=== PATIENT | female | born 1980 | race Caucasian/White ===

== ENCOUNTER 2017-08-11 18:25 | Emergency (ER) | payer OTHER ==
[~2017-08-11] VITALS: Ht 170.2 cm; Wt 77.1 kg
--- NOTE | 2017-08-11 18:40 | ED.ADGEN ---
Past History Past Medical History: Other Adult General Chief Complaint Chief Complaint " I got this bad tooth here on Rt lower(31/32 area).. but now my jaw is swollen and it seems to be affecting my hearing.. I am up here visiting from [place]. " [facility] HPI Patient is a 37 year old female who presents with complaints of congestion and cough. In right ear pain and mandible tenderness . The patient has multiple areas of dental decay and pain is localized in teeth 31 and 32 area. Appears to have need of extraction or repair of 32. Has some adenopathy right mandible angle. There is some retraction of TM on that side. Air-conduction is less than bone conduction on the right side. Bone conduction is equal in both ears with 128 fork. Patient has no trismus. No history immunosuppression. Patient rates her pain 9 out of 10. No obvious pointing abscess. Review of Systems Review of Systems Constitutional: Denies fever or chills [] Eyes: Denies change in visual acuity, redness, or eye pain [] HENT: History of nasal congestion or sore throat []history of right dental pain. History of right ear pain Respiratory: Denies cough or shortness of breath [] Cardiovascular: No additional information not addressed in HPI [] GI: Denies abdominal pain, nausea, vomiting, bloody stools or diarrhea [] : Denies dysuria or hematuria [] Musculoskeletal: Denies back pain or joint pain [] Integument: Denies rash or skin lesions [] Neurologic: Denies headache, focal weakness or sensory changes [] Endocrine: Denies polyuria or polydipsia [] All other systems were reviewed and found to be within normal limits, except as documented in this note. Family History Family History Noncontributory Current Medications Current Medications Current Medications Medications (Trade) Dose Ordered Sig/Jaime Start Time Stop Time Status Last Admin Dose Admin Amoxicillin (Amoxil) 500 mg 1X ONCE 08/11/17 19:30 08/11/17 19:30 DC 08/11/17 19:17 500 MG Ketorolac Tromethamine (Toradol) 60 mg 1X ONCE 08/11/17 19:30 08/11/17 19:30 DC 08/11/17 19:18 60 MG Seenursing for home meds Allergies Allergies Allergies Coded Allergies Type Severity Reaction Last Updated Verified No Known Drug Allergies 08/11/17 No Physical Exam Physical Exam Constitutional: Well developed, well nourished, in acute distress, non-toxic appearance. [] HENT: Normocephalic, atraumatic, bilateral external ears normal, oropharynx moist, no oral exudates, nose swollen turbinates and rhinorrhea. Pain in at tooth area of 31 /32 Eyes: PERRLA, EOMI, conjunctiva normal, no discharge. [] Neck: Normal range of motion, no tenderness, supple, no stridor. [] Cardiovascular:Heart rate regular rhythm, no murmur [] Lungs & Thorax: Bilateral breath sounds clear to auscultation [] Abdomen: Bowel sounds normal, soft, no tenderness, no masses, no pulsatile masses. [] Obese Skin: Warm, dry, no erythema, no rash. [] Back: No tenderness, no CVA tenderness. [] Extremities: No tenderness, no cyanosis, no clubbing, ROM intact, no edema. [] Neurologic: Alert and oriented X 3, normal motor function, normal sensory function, no focal deficits noted. [] Psychologic: Affect anxious, judgement normal, mood normal. [] Current Patient Data Vital Signs Vital Signs Date Time Temp Pulse Resp B/P (MAP) Pulse Ox O2 Delivery O2 Flow Rate FiO2 08/11/17 19:23 99 18 134/90 (105) 99 Room Air 08/11/17 18:36 98.2 EKG EKG [] Radiology/Procedures Radiology/Procedures [] Course & Med Decision Making Course & Med Decision Making Pertinent Labs and Imaging studies reviewed. (See chart for details). Must see a dentist. Take meds as directed. Amoxicillin on 4 times a day and Vicoprofen as needed. Must follow-up. No further narcotic via ED. [] Final Impression Final Impression 1. Upper Respiratory Infection[] 2. Dental pain Problems: Dragon Disclaimer Dragon Disclaimer This electronic medical record was generated, in whole or in part, using a voice recognition dictation system. EFRA LEVI MD Aug 11, 2017 18:40
[2017-08-11] MEDS ORDERED: AMOX500C PO (19:09)
[2017-08-11] MEDS ORDERED: HYDR-79 PO (19:09)
[2017-08-11 19:23] VITALS: BP 134/90
[2017-08-11] MEDS ORDERED: KETOROLAC 60 MG/2 ML VIAL. IM ONE (19:30)
[2017-08-11] MEDS ORDERED: AMOXICILLIN 250 MG CAPSULE PO ONE (19:30)
== END 2017-08-11 19:25 | disposition home or self-care (01) ==
LOC: ER 18:25
DX: J06.9 Acute upper respiratory infection, unspecified (principal); K08.89 Other specified disorders of teeth and supporting structures
CPT/HCPCS: 96372; 99283; J1885